=== PATIENT | female | born 1980 | race Asian ===

== ENCOUNTER 2017-10-20 11:14 | Emergency (ER) | payer MEDICARE, OTHER ==
[~2017-10-20] VITALS: Ht 157.5 cm; Wt 56.7 kg
[2017-10-20 11:14] VITALS: BP 123/76
[~2017-10-20 11:14] MED LIST: ASEN10TA9 SL; BUPR75TA3 PO; HYDR1TAB PO; ROSU10TA PO; TENO300T5 PO
== END 2017-10-20 11:47 | disposition home or self-care (01) ==
LOC: ER 11:15
DX: H11.002 Unspecified pterygium of left eye (principal); F32.9 Major depressive disorder, single episode, unspecified; F20.9 Schizophrenia, unspecified; Z87.440 Personal history of urinary (tract) infections
CPT/HCPCS: A4606; Z7502; Z7610

== ENCOUNTER 2023-09-19 20:23 | Emergency (ER) | payer MEDICARE, OTHER ==
[~2023-09-19] VITALS: Ht 165.1 cm; Wt 63.5 kg
[~2023-09-19 20:23] MED LIST changes: -ROSU10TA PO; +ROSU10TA2 PO
[2023-09-19 21:19] VITALS: TEMP 98.2
[2023-09-19 22:16] LABS: BASOPHILS % (AUTO) 0.6 % (0.0-2.0); EOSINOPHILS # (AUTO) 0.1 K/uL (0.0-0.7); EOSINOPHILS % (AUTO) 1.9 % (0.0-6.0); HEMATOCRIT 36 % (33-45); HEMOGLOBIN 11.9 g/dL (11.5-14.8); LYMPHOCYTES # (AUTO) 1.5 K/uL (0.8-4.8); LYMPHOCYTES % (AUTO) 36.7 % (20.0-44.0); MEAN CORPUSCULAR HEMOGLOBIN 30 PG (26.0-33.0); MEAN CORPUSCULAR HGB CONC 33 g/dl (31.0-36.0); MEAN CORPUSCULAR VOLUME 91 fL (82-100); MONOCYTES # (AUTO) 0.3 K/uL (0.1-1.30); MONOCYTES % (AUTO) 7.1 % (2.0-12.0); NEUTROPHILS # (AUTO) 2.2 K/uL (1.8-8.9); NEUTROPHILS % (AUTO) 53.7 % (43.0-81.0); PLATELET COUNT (AUTO) 203 K/uL (150-450); RED BLOOD CELL COUNT(AUTO) 3.93 MIL/uL (4.0-5.2); RED CELL DISTRIBUTION WIDTH 13.3 % (11.5-15.0); WHITE BLOOD COUNT (AUTO) 4.2 K/uL (4.3-11.0)
[2023-09-19 22:40] LABS: ALBUMIN 3.2 g/dL (3.4-5.0); BILIRUBIN,DIRECT 0.1 mg/dL (0.0-0.2); BILIRUBIN,TOTAL 0.2 mg/dL (0.2-1.0); CALCIUM, SERUM 8.5 mg/dL (8.5-10.1); CREATININE 1.1 mg/dL (0.6-1.3); TOTAL PROTEIN, SERUM 7.4 g/dL (6.4-8.2)
[2023-09-19 23:26] VITALS: BP 134/91; O2SAT 98
== END 2023-09-19 23:26 | disposition home or self-care (01) ==
LOC: ER 20:34
DX: K75.9 Inflammatory liver disease, unspecified (principal); F32.A Depression, unspecified; F20.9 Schizophrenia, unspecified; Z87.440 Personal history of urinary (tract) infections
CPT/HCPCS: 36415; 71045-TC; 80048-TC; 80076-TC; 83690-TC; 83880; 85025-TC